=== PATIENT | male | born 1955 | race Caucasian/White ===

== ENCOUNTER → 2024-12-21 | Day surgery (SDC) | payer MEDICARE, MEDICAID ==
[~2024-12-21] VITALS: Ht 185.4 cm; Wt 86.2 kg
[~2024-12-21] MED LIST: ACETAMINOPHEN 325MG TABLET PO PRN; ALBU90AE IH; ALFU10TA46 PO; ASPI-1497 PO; ATOR20TA65 PO; ATROPINE SULFATE 1MG/10ML SYR IV PRN; ATROPINE SULFATE 1MG/10ML SYR ONE; DIPHENHYDRAMINE 50MG/ML VIAL ONE; DULA1.5P SQ; DUTA0.5C37 PO; ENSI3AMP INH; EPINEPHRINE 0.1MG/ML (1:10,000) 10ML SYR ONE; FENTANYL CITRATE/PF 50MCG/ML 2ML VIAL ONE; FLUT1BLS IH; GLIM2TAB30 PO; HEPARIN 1000 UNITS/ML 10ML ONE; IODIXANOL 320MG/ML 100 ML BOTTLE IV ONE; IRBE150T34 PO; LIDOCAINE HCL 1% 20ML VIAL ONE; METHYLPREDNISOLONE SOD SUCC 125MG/2ML (ACT-O-VIAL) ONE; MIDAZOLAM HCL 2 MG/2 ML VIAL ONE; OMEP40CA20 PO; ONDANSETRON HCL 4MG/2ML INJ IV PRN; PIOG30TA10 PO; UMEC62.5 IH
== END | disposition home or self-care (01) ==
LOC: CCL 06:21
PROVIDERS: ATTEND Specialist
DX: I25.10 Atherosclerotic heart disease of native coronary artery without angina pectoris (principal); I11.0 Hypertensive heart disease with heart failure; I50.20 Unspecified systolic (congestive) heart failure; I25.2 Old myocardial infarction; E78.5 Hyperlipidemia, unspecified; E11.9 Type 2 diabetes mellitus without complications; Z79.82 Long term (current) use of aspirin; Z79.84 Long term (current) use of oral hypoglycemic drugs; Z79.899 Other long term (current) drug therapy; Z82.49 Family history of ischemic heart disease and other diseases of the circulatory system; Z95.5 Presence of coronary angioplasty implant and graft; Z98.890 Other specified postprocedural states; Z88.0 Allergy status to penicillin; Z88.8 Allergy status to other drugs, medicaments and biological substances
CPT/HCPCS: 93460; 82962; C1893; C1887 ×2; C1769; J3010; Q9967; J0461; J1200; J3490; J1644 ×2; J2003; J2919; J2250; 99152; 99153; A4606; A4615; G0500